=== PATIENT | male | born 1950 | race Caucasian/White ===

== ENCOUNTER 2019-04-25 13:32 | Day surgery (SDC) | payer MEDICARE ==
[2019-04-25] VITALS (8 sets, daily range): BP systolic 109–139; BP diastolic 43–76
[~2019-04-25] VITALS: Ht 188 cm; Wt 80.6 kg
[2019-04-25] MEDS ORDERED: normal saline 1,000 ML IV SCH (13:55)
[2019-04-25] MEDS ORDERED: LIDOcaine/PRILOcaine 5gm cream TP ONE (13:55)
[2019-04-25] MEDS ORDERED: diphenhydrAMINE 25mg capsule PO PRN (13:55)
[2019-04-25] MEDS ORDERED: LORazepam 0.5 MG tablet PO PRN (13:55)
[2019-04-25] MEDS ORDERED: METF-438 PO (14:15)
[2019-04-25] MEDS ORDERED: LACT1CAP65 PO (14:15)
[2019-04-25] MEDS ORDERED: ASPI81TA52 PO (14:15)
[2019-04-25] MEDS ORDERED: SAW/1TAB2 PO (14:15)
[2019-04-25] MEDS ORDERED: GLIP5TAB13 PO (14:15)
[2019-04-25] MEDS ORDERED: ATOR10TA87 PO (14:15)
[2019-04-25] MEDS ORDERED: LISI-604 PO (14:15)
[2019-04-25] MEDS ORDERED: midazolam 2 mg/2 ml injection ONE (16:26)
[2019-04-25] MEDS ORDERED: fentaNYL/PF 50MCG/1 ML 2ML syringe ONE (16:26)
[2019-04-25] MEDS ORDERED: iohexol 350MG/ML 100ml bottle IV ONE (16:27)
[2019-04-25] MEDS ORDERED: nitroGLYCERIN-Tridil 50MG/D5W 250 ML IV ONE (16:27)
[2019-04-25] MEDS ORDERED: verapamil 2.5 mg/ml inj IV ONE (16:27)
[2019-04-25] MEDS ORDERED: heparin 1,000unit/ml 10ml vial 10 ML ONE (16:27)
[2019-04-25] MEDS ORDERED: LIDOcaine 1% W/epiNEPHrine 1:100,000 20ml vial ONE (16:27)
== END 2019-04-25 20:00 | disposition home or self-care (01) ==
LOC: SSTAY O 13:32
PROVIDERS: ATTEND Internal Medicine Interventional Cardiology
DX: R94.39 Abnormal result of other cardiovascular function study (principal); R07.9 Chest pain, unspecified; I25.10 Atherosclerotic heart disease of native coronary artery without angina pectoris; I10 Essential (primary) hypertension; E78.5 Hyperlipidemia, unspecified; E11.9 Type 2 diabetes mellitus without complications; I48.91 Unspecified atrial fibrillation; Z79.84 Long term (current) use of oral hypoglycemic drugs; Z79.82 Long term (current) use of aspirin; Z79.899 Other long term (current) drug therapy
CPT/HCPCS: 82948; 93005; 93458; 99152; 99153; C1769; C1894; J1644; J2250; J3010; J7030; Q0163; Q9967; A4620; J3490

== ENCOUNTER 2019-05-25 05:34 | Inpatient (IN) | payer MEDICARE, OTHER ==
[2019-05-23 14:24] LABS: BASOPHILS % (AUTO) 0.7 % (0-1); EOSINOPHILS # (AUTO) 0.1 X10'3 (0-0.9); EOSINOPHILS % (AUTO) 1.2 % (0-6); LYMPHOCYTES # (AUTO) 1.1 X10'3 (1.1-4.8); LYMPHOCYTES % (AUTO) 21.9 % (21-51); MEAN CORPUSCULAR HEMOGLOBIN 32.2 PG (27.0-31.0); MEAN CORPUSCULAR HGB CONC 33.9 g/dL (33.0-36.5); MEAN CORPUSCULAR VOLUME 95.2 FL (78-98); MEAN PLATELET VOLUME 9.2 FL (7.4-10.4); MONOCYTES # (AUTO) 0.6 X10'3 (0-0.9); MONOCYTES % (AUTO) 11.6 % (2-12); NEUTROPHILS # (AUTO) 3.4 X10'3 (1.8-7.7); NEUTROPHILS % (AUTO) 64.6 % (42-75); PRE OP HEMATOCRIT 44.8 % (42.0-52.0); PRE OP HEMOGLOBIN 15.2 g/dL (14.0-17.9); PRE OP PLATELET COUNT 171 X10'3 (140-440); RED CELL DISTRIBUTION WIDTH 13.7 % (11.5-14.5)
[2019-05-23 14:31] LABS: PRE OP INR 0.9 INR; PRE OP PROTIME 9.8 SECONDS (9.0-12.0)
[2019-05-23 14:34] LABS: ALBUMIN 3.9 G/DL (3.4-5.0); ALBUMIN/GLOBULIN RATIO 0.9 (1.1-1.5); ALKALINE PHOSPHATASE 67 IU/L (46-116); BLOOD UREA NITROGEN 18 MG/DL (7-18); BUN/CREATININE RATIO 17.5 (5.4-32.0); CALCIUM 9.5 MG/DL (8.5-10.1); CHLORIDE 102 MMOL/L (99-107); CREATININE 1.03 MG/DL (0.60-1.10); PRE OP ALT 21 U/L (30-65); PRE OP ANION GAP 9 (8-16); PRE OP AST 19 U/L (10-37); PRE OP BILIRUB, TOTAL 0.3 MG/DL (0.0-1.0); PRE OP GLUCOSE 199 MG/DL (70-104); PRE OP SODIUM 138 MMOL/L (135-145); TOTAL CARBON DIOXIDE 27.5 MMOL/L (24-32); TOTAL PROTEIN 8.1 G/DL (6.4-8.2); eGFR 72 ML/MIN
[2019-05-23 14:46] LABS: HEMOGLOBIN A1C 8.3 % (4.5-6.2)
[2019-05-23 17:26] LABS: CLARITY,URINE CLEAR (Clear); COLOR,URINE YELLOW (Yellow); GLUCOSE, URINE >=1000 mg/dl (Neg); KETONES,URINE NEGATIVE (Neg); LEUKOCYTE ESTERASE ,URINE NEGATIVE (Neg); NITRITES, URINE NEGATIVE (Neg); OCCULT BLOOD,URINE NEGATIVE (Neg); PH,URINE 5.5 (4.8-8.0); PROTEIN,URINE NEGATIVE (Neg); UROBILINOGEN,URINE 0.2 E.U/dL (0.2-1.0)
[2019-05-23 17:33] LABS: UA COLLECTION TYPE VOIDED
[2019-05-23 17:42] LABS: BACTERIA,URINE NONE SEEN /HPF (Neg); RBC,URINE NONE SEEN /HPF (0-2); SQUAMOUS EPITHELIAL CELL,UR NONE SEEN /LPF (FEW); WBC,URINE NONE SEEN /HPF (0-4)
[2019-05-24 06:11] LABS: ABG BASE EXCESS -1.6 mmol/L (-2.0-3.0); ABG HCO3 22.6 mmol/L (22.0-26.0); ABG OXYGEN SATURATION 97.4 % (95-98); ABG PCO2 (T) 36.8 mmHg (35.0-45.0); ABG PH (T) 7.406 (7.350-7.450); ABG PO2 (T) 100.7 mmHg (83-108); ALLEN'S TEST Positive; FCOHb 0.5 % (0.5-1.5); FMetHb 0.3 % (0.3-1.12); FO2Hb 96.6 % (94-100); RESPIRATORY RATE (OBSERVED) 20 b/min
[~2019-05-25] VITALS: Ht 182.9 cm; Wt 86.2 kg
[2019-05-25] VITALS (22 sets, daily range): BP systolic 98–145; BP diastolic 48–84
[~2019-05-25 05:34] MED LIST: ASPI81TA52 PO; ATOR10TA87 PO; GLIP5TAB13 PO; LIDOcaine 1% (10mg/ml) 2ml vial ONE; LISI-604 PO; LORazepam 2 mg/ml vial IV ONE; METF-438 PO; ROPIVAcaine 0.5% (5mg/ml) 30ml vial ONE; SAW/1TAB2 PO; cefazolin/dext.iso 2gm/50ml 50 ML IV ONE; famotidine 20mg tablet PO ONE; gabapentin 300mg capsule PO ONE; metoprolol tartrate 12.5mg (1/2 tablet) PO ONE; mupirocin 2% nasal ointment 1gm UD NS ONE; ringers solution, lacted 1,000 ML IV SCH; vancomycin inj 1,500 MG in normal saline 300ml IV soln IV ONE
[2019-05-25] MEDS ORDERED: INSULIN R 100 UNIT in NS 100ML (1 UNIT/1 ML) BAG IV ONE (06:51)
[2019-05-25] MEDS ORDERED: SUFENTANIL CITRATE 50 MCG/ML 2ml ampule IV ONE (06:51)
[2019-05-25] MEDS ORDERED: protamine sulf. 10mg/ml inj. IV ONE (06:51)
[2019-05-25] MEDS ORDERED: DOPamine/D5W 400mg/250ml bag IV ONE (06:51)
[2019-05-25] MEDS ORDERED: sevoflurane 250ml liquid IH ONE (06:51)
[2019-05-25] MEDS ORDERED: midazolam 2 mg/2 ml injection ONE ×2 (06:52)
[2019-05-25] MEDS ORDERED: rocuronium 10mg/ml inj IV ONE ×3 (06:52→08:14)
[2019-05-25] MEDS ORDERED: propofol inj 20 ML IV ONE (06:52)
--- NOTE | 2019-05-25 07:03 | NUR ---
PT IS SERG, HE HAS A BLOOD REFUSAL WRIST BAND ON. PT FORGOT HIS PROTEIN DRINK, DR MORGAN AWARE Addendum: 05/25/19 at 0709 by Camelia Shepard RN Amended: Links added.
[2019-05-25 07:45] LABS: CLARITY,URINE CLEAR (Clear); COLOR,URINE YELLOW (Yellow); GLUCOSE, URINE 250 mg/dl (Neg); KETONES,URINE NEGATIVE (Neg); LEUKOCYTE ESTERASE ,URINE NEGATIVE (Neg); NITRITES, URINE NEGATIVE (Neg); OCCULT BLOOD,URINE NEGATIVE (Neg); PH,URINE 5.5 (4.8-8.0); PROTEIN,URINE NEGATIVE (Neg); UROBILINOGEN,URINE 0.2 E.U/dL (0.2-1.0)
[2019-05-25 07:46] LABS: ABG BASE EXCESS -3.1 mmol/L (-2.0-3.0); ABG HCO3 21.9 mmol/L (22.0-26.0); ABG OXYGEN SATURATION 97.4 % (95-98); ABG PCO2 39.1 mmHg (35.0-45.0); ABG PH 7.366 (7.350-7.450); ABG PO2 98.7 mmHg (60.0-100.0); CL (ABG) 103 mmol/L (99-107); FCOHb 0.7 % (0.5-1.5); FO2Hb 96.7 % (94-100); GLUCOSE (ABG) 164 mg/dl (70-104); IONIZED CA (ABG) 1.14 mmol/L (1.03-1.32); K (ABG) 4.9 mmol/L (3.3-5.1); NA (ABG) 137 mmol/L (135-145); TOTAL HEMOGLOBIN 13.2 G/dl (14.0-17.9)
[2019-05-25 07:46] LABS: UA COLLECTION TYPE NON-SPECIFIED
[2019-05-25] MEDS ORDERED: papaverine 30 mg/ml 2ml inj. IA ONE ×2 (07:50→10:00)
[2019-05-25] MEDS ORDERED: heparin 10,000 units/1 ML INJ IR ONE (07:50)
[2019-05-25] MEDS ORDERED: methylPREDNISolone sod. succ. 500mg inj ONE (08:00)
[2019-05-25] MEDS ORDERED: heparin 10,000 units/1 ML INJ ONE ×2 (08:00)
[2019-05-25] MEDS ORDERED: aminocaproic acid 250 MG/1 ML inj. ONE (08:00)
[2019-05-25] MEDS ORDERED: albumin (human) 25% 100 ML IV solution IV ONE (08:00)
[2019-05-25] MEDS ORDERED: papaverine 30 mg/ml 2ml inj. ONE (08:00)
[2019-05-25] MEDS ORDERED: calcium chloride 100 MG/1 ML inj IV ONE (08:00)
[2019-05-25] MEDS ORDERED: MAGNESIUM SULFATE 4 MEQ/ML (5gm/10ml) injection ONE (08:00)
[2019-05-25] MEDS ORDERED: sodium bicarbonate (8.4%) 1 mEq/ml syringe ONE (08:00)
[2019-05-25] MEDS ORDERED: phenylephrine 10mg/ml inj. ONE (08:00)
[2019-05-25] MEDS ORDERED: LIDOcaine 2% (20 mg/ml) 5ml cardiac syringe ONE (08:00)
[2019-05-25] MEDS ORDERED: NORMAL SALINE IV ONE (09:30)
[2019-05-25] MEDS ORDERED: DESMOPRESSIN IV ONE (09:30)
[2019-05-25 09:40] LABS: ABG HCO3 VENOUS 21.4 mmol/L; ABG PCO2 VENOUS 40.3 mmHg; CL (ABG) 105 mmol/L (99-107); FCOHb VENOUS 0.7 %; FHHb VENOUS 17.9 %; FMetHb VENOUS 0.3 %; FO2Hb VENOUS 81.1 %; GLUCOSE (ABG) 170 mg/dl (70-104); IONIZED CA (ABG) 1.06 mmol/L (1.03-1.32); NA (ABG) 133 mmol/L (135-145); TOTAL HEMOGLOBIN 12.6 G/dl (14.0-17.9)
[2019-05-25 10:26] LABS: ABG BASE EXCESS VENOUS -3.7 mmol/L; ABG HCO3 VENOUS 20.5 mmol/L; ABG PO2 VENOUS 45.3 mmHg; CL (ABG) 101 mmol/L (99-107); FCOHb VENOUS 0.1 %; FHHb VENOUS 17.7 %; FMetHb VENOUS 0.3 %; FO2Hb VENOUS 81.9 %; GLUCOSE (ABG) 142 mg/dl (70-104); IONIZED CA (ABG) 0.94 mmol/L (1.03-1.32); K (ABG) 5.1 mmol/L (3.3-5.1); NA (ABG) 132 mmol/L (135-145); TOTAL HEMOGLOBIN 10.2 G/dl (14.0-17.9)
[2019-05-25 10:36] LABS: ABG BASE EXCESS -2.1 mmol/L (-2.0-3.0); ABG HCO3 22.2 mmol/L (22.0-26.0); ABG OXYGEN SATURATION 99.2 % (95-98); ABG PCO2 36.2 mmHg (35.0-45.0); ABG PH 7.406 (7.350-7.450); ABG PO2 390.4 mmHg (60.0-100.0); CL (ABG) 103 mmol/L (99-107); FCOHb 0.3 % (0.5-1.5); FMetHb 0.4 % (0.3-1.12); FO2Hb 98.5 % (94-100); GLUCOSE (ABG) 157 mg/dl (70-104); IONIZED CA (ABG) 0.96 mmol/L (1.03-1.32); NA (ABG) 131 mmol/L (135-145); TOTAL HEMOGLOBIN 10.3 G/dl (14.0-17.9)
[2019-05-25 11:01] LABS: ABG BASE EXCESS -2.7 mmol/L (-2.0-3.0); ABG OXYGEN SATURATION 99.3 % (95-98); ABG PCO2 44.1 mmHg (35.0-45.0); ABG PH 7.336 (7.350-7.450); ABG PO2 319.4 mmHg (60.0-100.0); CL (ABG) 105 mmol/L (99-107); FCOHb 0.3 % (0.5-1.5); FMetHb 0.3 % (0.3-1.12); FO2Hb 98.7 % (94-100); GLUCOSE (ABG) 175 mg/dl (70-104); IONIZED CA (ABG) 1.01 mmol/L (1.03-1.32); K (ABG) 5.6 mmol/L (3.3-5.1); NA (ABG) 135 mmol/L (135-145); TOTAL HEMOGLOBIN 10.8 G/dl (14.0-17.9)
[2019-05-25 11:16] LABS: ACT @ 1.70 U 289 SEC (193-297); ACT @ 2.84 U 382 SEC (260-420); BASELINE ACT 139 SEC (101-148); PATIENT WEIGHT 82.0k KG
[2019-05-25 11:36] LABS: ABG BASE EXCESS -1.1 mmol/L (-2.0-3.0); ABG HCO3 24.6 mmol/L (22.0-26.0); ABG PCO2 45.2 mmHg (35.0-45.0); ABG PH 7.353 (7.350-7.450); ABG PO2 256.9 mmHg (60.0-100.0); CL (ABG) 103 mmol/L (99-107); FCOHb 0.3 % (0.5-1.5); FMetHb 0.3 % (0.3-1.12); FO2Hb 98.4 % (94-100); GLUCOSE (ABG) 163 mg/dl (70-104); IONIZED CA (ABG) 0.98 mmol/L (1.03-1.32); K (ABG) 5.7 mmol/L (3.3-5.1); NA (ABG) 133 mmol/L (135-145); TOTAL HEMOGLOBIN 10.1 G/dl (14.0-17.9)
[2019-05-25 12:10] LABS: ABG BASE EXCESS VENOUS -2.6 mmol/L; ABG HCO3 VENOUS 22.3 mmol/L; ABG PCO2 VENOUS 38.8 mmHg; ABG PO2 VENOUS 36.7 mmHg; CL (ABG) 105 mmol/L (99-107); FCOHb VENOUS 0.5 %; FHHb VENOUS 30.2 %; FMetHb VENOUS 0.4 %; FO2Hb VENOUS 68.9 %; GLUCOSE (ABG) 149 mg/dl (70-104); IONIZED CA (ABG) 1.18 mmol/L (1.03-1.32); K (ABG) 4.7 mmol/L (3.3-5.1); NA (ABG) 137 mmol/L (135-145); TOTAL HEMOGLOBIN 10.9 G/dl (14.0-17.9)
[2019-05-25] MEDS ORDERED: acetaminophen 1,000mg/100ml IV 100 ML IV ONE (12:24)
[2019-05-25] MEDS ORDERED: magnesium 2GM in 50ml NS 50 ML IV PRN (12:55)
[2019-05-25] MEDS ORDERED: DOPamine 400mg/D5W 250ml 250 ML IV PRN (12:55)
[2019-05-25] MEDS ORDERED: metoclopramide 5 mg/ml inj IV PRN (12:55)
[2019-05-25] MEDS ORDERED: normal saline 250ml IV soln 250 ML IV PRN (12:55)
[2019-05-25] MEDS ORDERED: ondansetron/PF 4mg/2ml inj IV PRN (12:55)
[2019-05-25] MEDS ORDERED: pantoprazole 40 MG vial IV ONE (12:55)
[2019-05-25] MEDS ORDERED: morphine 4 MG/ML inj SYRINge IV PRN (12:55)
[2019-05-25] MEDS ORDERED: dextrose 50%-water 50ml dispensing syringe IV PRN (12:55)
[2019-05-25] MEDS ORDERED: magnesium hydroxide 30ml (MOM) UD suspension PO PRN (12:55)
[2019-05-25] MEDS ORDERED: NORepinephrine 8mg/ 250ml NS 250 ML IV PRN (12:55)
[2019-05-25] MEDS ORDERED: nitroGLYCERIN-Tridil 50MG/D5W 250 ML IV PRN (12:55)
[2019-05-25] MEDS ORDERED: insulin regular, human inj. 100 UNITS in normal saline 100ml IV soln 100 ML IV SCH ×2 (12:55)
[2019-05-25] MEDS ORDERED: acetaminophen 325mg tablet PO PRN (12:55)
[2019-05-25] MEDS ORDERED: sodium phosphate inj. 15 MMOL in dextrose 5%-water 150 ML IV PRN (12:55)
[2019-05-25] MEDS ORDERED: niCARDipine-NS 40mg/200ml IVPB 200 ML IV PRN (12:55)
[2019-05-25] MEDS ORDERED: Neutra Phos packet PO PRN (12:55)
[2019-05-25] MEDS ORDERED: albumin (Human) 5% 250ml 250 ML IV PRN (12:55)
[2019-05-25] MEDS ORDERED: magnesium 4gm in 100ml NS 100 ML IV PRN (12:55)
[2019-05-25] MEDS ORDERED: sodium phosphate inj. 30 MMOL in dextrose 5%-water 250 ML IV PRN (12:55)
[2019-05-25] MEDS: insulin Lispro (HumaLOG) vial - multi-dose SQ SCH ×2 (13:00→17:06)
--- NOTE | 2019-05-25 13:00 | NUR ---
Received to room 2008, accompanied by MDs and surgical crew. Placed on ventilator, to classroom monitor, arterial line and PA line pressure monitored. Chest tubes to suction at 20 cm. Rodriguez cath to gravity drainage. Dressings are dry and intact. See assessment record. All vasoactive drugs are infusing via central line.
[2019-05-25 13:20] LABS: ABG BASE EXCESS -4.1 mmol/L (-2.0-3.0); ABG HCO3 20.6 mmol/L (22.0-26.0); ABG PCO2 (T) 36.5 mmHg (35.0-45.0); ABG PH (T) 7.369 (7.350-7.450); ABG PO2 (T) 186.3 mmHg (83-108); FCOHb 0.3 % (0.5-1.5); FLOW 40 L/min; FMetHb 0.4 % (0.3-1.12); FO2Hb 98.3 % (94-100); MINUTE VOLUME 7 L/min; PEEP 5 cm H2O; RESPIRATORY RATE 12 b/min; RESPIRATORY RATE (OBSERVED) 12 b/min; TIDAL VOLUME 550 mL; TOTAL HEMOGLOBIN 12.5 G/dl (14.0-17.9)
[2019-05-25 13:29] LABS: BASOPHILS % (AUTO) 0.2 % (0-1); EOSINOPHILS % (AUTO) 0.1 % (0-6); HEMATOCRIT 34.3 % (42.0-52.0); HEMOGLOBIN 11.6 g/dl (14.0-17.9); LYMPHOCYTES # (AUTO) 0.9 X10'3 (1.1-4.8); LYMPHOCYTES % (AUTO) 8.1 % (21-51); MEAN CORPUSCULAR HEMOGLOBIN 32.1 PG (27.0-31.0); MEAN CORPUSCULAR VOLUME 94.5 FL (78-98); MONOCYTES # (AUTO) 0.6 X10'3 (0-0.9); MONOCYTES % (AUTO) 5.3 % (2-12); NEUTROPHILS # (AUTO) 10.1 X10'3 (1.8-7.7); NEUTROPHILS % (AUTO) 86.3 % (42-75); PLATELET COUNT 107 X10'3 (140-440); RED BLOOD COUNT 3.63 X10'6 (4.70-6.10); RED CELL DISTRIBUTION WIDTH 13.6 % (11.5-14.5); WHITE BLOOD COUNT 11.7 X10'3 (4.5-11.0)
[2019-05-25 13:45] LABS: ANION GAP 9 (8-16); BILIRUBIN,TOTAL 0.5 MG/DL (0.1-1.0); BLOOD UREA NITROGEN 17 MG/DL (7-18); CALCIUM 8.2 MG/DL (8.5-10.1); CHLORIDE 109 MMOL/L (99-107); CREATININE 1.21 MG/DL (0.60-1.10); GLUCOSE 138 MG/DL (70-104); MAGNESIUM 1.9 MG/DL (1.5-2.4); PHOSPHORUS 1.6 MG/DL (2.3-4.5); POTASSIUM 4.3 MMOL/L (3.5-5.1); SODIUM 143 MMOL/L (135-145); TOTAL CARBON DIOXIDE 24.8 MMOL/L (24-32); eGFR 60 ML/MIN
[2019-05-25 13:46] LABS: ALANINE AMINOTRANSFERASE 16 U/L (12-78); ALBUMIN/GLOBULIN RATIO 1.3 (1.1-1.5); ALKALINE PHOSPHATASE 41 IU/L (46-116); ASPARTATE AMINO TRANSFERASE 26 U/L (10-37); TOTAL PROTEIN 5.3 G/DL (6.4-8.2)
[2019-05-25] MEDS: insulin regular, human 100 UNIT in normal saline 100ml IV soln 99 ML IV SCH ×2 (14:00)
[2019-05-25] MEDS: sodium chloride 0.45% 1,000 ML IV SCH (14:04)
[2019-05-25 14:06] LABS: PARTIAL THROMBOPLASTIN TIME 26 SECONDS (22-32)
[2019-05-25] MEDS: gabapentin 300mg capsule PO SCH ×2 (14:10→20:33)
--- NOTE | 2019-05-25 14:30 | NUR ---
Dr Conway here ordered cryo secondary cheat tube output 150cc last hour
--- NOTE | 2019-05-25 14:46 | NUR ---
Nutrition consult: Pt s/p CABG x 5 today, would benefit from nutrition therapy education once stable prior to discharge. Will continue to follow. Addendum: 05/25/19 at [address] Amended: Links added.
[2019-05-25] MEDS: ceFAZolin 1GM/D5W- ADD-VANTAGE 50 ML IV SCH ×2 (15:41→23:57)
[2019-05-25] MEDS: potassium Cl 20mEq/100mL bag 100 ML IV PRN ×2 (17:09→18:15)
--- NOTE | 2019-05-25 18:15 | NUR ---
Problems reprioritized. Patient report given, questions answered & plan of care reviewed with oncoming shift.
--- NOTE | 2019-05-25 18:31 | NUR ---
1830..Patient in room CICU 2007. I have received report from Tracey GARRETT and had the opportunity to ask questions and assume patient care.
[2019-05-25] MEDS: mupirocin 2% ointment 22GM NS SCH (19:28)
[2019-05-25] MEDS: vancomycin/NS 1 GM ADD-VANTAGE 250 ML IV SCH (19:28)
[2019-05-25] MEDS: morphine 4 MG/ML inj SYRINge IV PRN ×2 (19:29→22:55)
[2019-05-25] MEDS: docusate sod 100mg capsule PO SCH (19:30)
--- NOTE | 2019-05-25 20:41 | NUR ---
2000..Assessment as noted, morphine given for complaints of pain effective for pain relief.
[2019-05-26] VITALS (24 sets, daily range): BP systolic 90–120; BP diastolic 50–64
--- NOTE | 2019-05-26 00:11 | NUR ---
0000..No changes noted, continuing to wean vent, again morphine given for complaints of pain effective fpr pain relief.
[2019-05-26 01:15] LABS: BASOPHILS % (AUTO) 0.1 % (0-1); EOSINOPHILS % (AUTO) 0 % (0-6); HEMATOCRIT 28.4 % (42.0-52.0); HEMOGLOBIN 9.8 g/dl (14.0-17.9); LYMPHOCYTES # (AUTO) 0.5 X10'3 (1.1-4.8); LYMPHOCYTES % (AUTO) 5.1 % (21-51); MEAN CORPUSCULAR HEMOGLOBIN 32.5 PG (27.0-31.0); MEAN CORPUSCULAR HGB CONC 34.6 g/dL (33.0-36.5); MEAN PLATELET VOLUME 9.1 FL (7.4-10.4); MONOCYTES # (AUTO) 0.7 X10'3 (0-0.9); MONOCYTES % (AUTO) 7.1 % (2-12); NEUTROPHILS # (AUTO) 8.1 X10'3 (1.8-7.7); NEUTROPHILS % (AUTO) 87.7 % (42-75); PLATELET COUNT 96 X10'3 (140-440); RED BLOOD COUNT 3.02 X10'6 (4.70-6.10); RED CELL DISTRIBUTION WIDTH 13.9 % (11.5-14.5); WHITE BLOOD COUNT 9.2 X10'3 (4.5-11.0)
[2019-05-26 01:27] LABS: PARTIAL THROMBOPLASTIN TIME 28 SECONDS (22-32)
[2019-05-26 01:31] LABS: ALANINE AMINOTRANSFERASE 16 U/L (12-78); ALBUMIN/GLOBULIN RATIO 1.2 (1.1-1.5); ALKALINE PHOSPHATASE 40 IU/L (46-116); ANION GAP 6 (8-16); ASPARTATE AMINO TRANSFERASE 29 U/L (10-37); BILIRUBIN,TOTAL 0.3 MG/DL (0.1-1.0); BLOOD UREA NITROGEN 16 MG/DL (7-18); BUN/CREATININE RATIO 14.2 (5.4-32.0); CHLORIDE 110 MMOL/L (99-107); CREATININE 1.13 MG/DL (0.60-1.10); GLUCOSE 122 MG/DL (70-104); MAGNESIUM 2.3 MG/DL (1.5-2.4); PHOSPHORUS 3.4 MG/DL (2.3-4.5); POTASSIUM 4.5 MMOL/L (3.5-5.1); SODIUM 143 MMOL/L (135-145); TOTAL CARBON DIOXIDE 26.8 MMOL/L (24-32); TOTAL PROTEIN 5.6 G/DL (6.4-8.2); eGFR 65 ML/MIN
[2019-05-26 01:31] LABS: ABG BASE EXCESS -3.8 mmol/L (-2.0-3.0); ABG HCO3 21.2 mmol/L (22.0-26.0); ABG PCO2 (T) 38.8 mmHg (35.0-45.0); ABG PH (T) 7.358 (7.350-7.450); ABG PO2 (T) 94.3 mmHg (83-108); FCOHb 0.2 % (0.5-1.5); FMetHb 0.2 % (0.3-1.12); FO2Hb 95.6 % (94-100); MINUTE VOLUME 8 L/min; PATIENT TEMPERATURE 37.3; PEEP 5 cm H2O; RESPIRATORY RATE (OBSERVED) 10 b/min; TOTAL HEMOGLOBIN 10.6 G/dl (14.0-17.9)
--- NOTE | 2019-05-26 01:47 | NUR ---
0145..Passed weaning parameters, extubated to 4l nasal cannula, no wheezing or stridor, tolerated well.
[2019-05-26] MEDS: HYDROcodone/acetaminophen 10/325mg tab PO PRN ×4 (01:59→20:48)
--- NOTE | 2019-05-26 03:42 | NUR ---
0330..Gilbert given for complaints of pain effective, pt denies pain. No other changes noted.
--- NOTE | 2019-05-26 04:09 | NUR ---
0400..Resting quietly, eyes closed, resp easy and nonlabored, no changes noted.
[2019-05-26] MEDS: insulin regular, human 100 UNIT in normal saline 100ml IV soln 99 ML IV SCH ×2 (06:00)
--- NOTE | 2019-05-26 06:16 | NUR ---
0615..Problems reprioritized. Patient report given, questions answered & plan of care reviewed with Tracey GARRETT.
[2019-05-26 07:36] LABS: K (ABG) 6.4 mmol/L (3.3-5.1)
[2019-05-26] MEDS: atorvastatin 10mg tablet PO SCH (08:00)
[2019-05-26] MEDS: FERROUS SULFATE 142 MG TABLET.ER (45mg elemental) PO SCH (08:00)
[2019-05-26] MEDS: metoprolol tartrate 12.5mg (1/2 tablet) PO SCH ×2 (08:00→19:47)
[2019-05-26] MEDS: ceFAZolin 1GM/D5W- ADD-VANTAGE 50 ML IV SCH ×2 (08:00→17:35)
[2019-05-26] MEDS: aspirin 81mg tablet.DR PO SCH (08:00)
[2019-05-26] MEDS ORDERED: potassium Cl 2 mEq/ml inj IV ONE (08:00)
[2019-05-26] MEDS: gabapentin 300mg capsule PO SCH ×3 (08:00→19:47)
[2019-05-26] MEDS ORDERED: aspirin 325mg tablet, delayed-release (Ecotrin) PO SCH (08:00)
[2019-05-26] MEDS: vancomycin/NS 1 GM ADD-VANTAGE 250 ML IV SCH ×2 (08:00→19:56)
[2019-05-26] MEDS: mupirocin 2% ointment 22GM NS SCH ×2 (08:00→19:48)
[2019-05-26] MEDS: docusate sod 100mg capsule PO SCH ×2 (08:00→19:47)
[2019-05-26] MEDS ORDERED: MESSAGE TO PHARMACY PO ONE (14:10)
[2019-05-26] MEDS ORDERED: glucagon, human recombinant 1mg kit SUBCUT PRN (14:10)
[2019-05-26] MEDS ORDERED: dextrose 50%-water 50ml dispensing syringe IV PRN ×2 (14:10)
[2019-05-26] MEDS ORDERED: dextrose ORAL solution 15 GM/59 ML bottle PO PRN ×2 (14:10)
[2019-05-26] MEDS: insulin Lispro (HumaLOG) vial - multi-dose SQ SCH ×2 (14:23→19:54)
[2019-05-26] MEDS: sodium chloride 0.45% 1,000 ML IV SCH (17:48)
--- NOTE | 2019-05-26 18:07 | NUR ---
Problems reprioritized. Patient report given, questions answered & plan of care reviewed with oncoming shift.
--- NOTE | 2019-05-26 18:37 | NUR ---
1830..Patient in room CICU 2007. I have received report from Tracey GARRETT and had the opportunity to ask questions and assume patient care.
[2019-05-26] MEDS: insulin glargine (Lantus) pen - multi-dose SQ SCH (19:53)
--- NOTE | 2019-05-26 22:32 | NUR ---
2200..Medicated with 2 norco for complaints of incisional pain, 02/12, with good effect, no other changes noted.
--- NOTE | 2019-05-26 22:32 | NUR ---
2000..Assessment as noted,declines bath.
[2019-05-27] VITALS (24 sets, daily range): BP systolic 100–135; BP diastolic 51–76
[2019-05-27] MEDS: ceFAZolin 1GM/D5W- ADD-VANTAGE 50 ML IV SCH (00:24)
--- NOTE | 2019-05-27 00:31 | NUR ---
0000..Resting quietly, no changes noted.
[2019-05-27 03:04] LABS: BASOPHILS % (AUTO) 0.1 % (0-1); EOSINOPHILS % (AUTO) 0 % (0-6); HEMATOCRIT 27.8 % (42.0-52.0); HEMOGLOBIN 9.4 g/dl (14.0-17.9); LYMPHOCYTES # (AUTO) 0.9 X10'3 (1.1-4.8); LYMPHOCYTES % (AUTO) 9.2 % (21-51); MEAN CORPUSCULAR HEMOGLOBIN 32.3 PG (27.0-31.0); MEAN CORPUSCULAR HGB CONC 33.8 g/dL (33.0-36.5); MEAN CORPUSCULAR VOLUME 95.6 FL (78-98); MEAN PLATELET VOLUME 9.8 FL (7.4-10.4); MONOCYTES # (AUTO) 1.2 X10'3 (0-0.9); MONOCYTES % (AUTO) 12.2 % (2-12); NEUTROPHILS # (AUTO) 7.6 X10'3 (1.8-7.7); NEUTROPHILS % (AUTO) 78.5 % (42-75); PLATELET COUNT 94 X10'3 (140-440); RED BLOOD COUNT 2.91 X10'6 (4.70-6.10); RED CELL DISTRIBUTION WIDTH 13.8 % (11.5-14.5); WHITE BLOOD COUNT 9.6 X10'3 (4.5-11.0)
[2019-05-27 03:23] LABS: ALBUMIN 2.8 G/DL (3.4-5.0); ANION GAP 2 (8-16); BLOOD UREA NITROGEN 24 MG/DL (7-18); CALCIUM 7.4 MG/DL (8.5-10.1); CHLORIDE 103 MMOL/L (99-107); GLUCOSE 221 MG/DL (70-104); MAGNESIUM 2.2 MG/DL (1.5-2.4); PHOSPHORUS 2.7 MG/DL (2.3-4.5); POTASSIUM 5.2 MMOL/L (3.5-5.1); SODIUM 134 MMOL/L (135-145); TOTAL CARBON DIOXIDE 28.6 MMOL/L (24-32); eGFR 61 ML/MIN
[2019-05-27] MEDS: HYDROcodone/acetaminophen 10/325mg tab PO PRN ×3 (03:29→23:18)
--- NOTE | 2019-05-27 04:29 | NUR ---
0415..[place] given for complaints of incisional pain 02/12, effective fpr pain relief, no other changes noted.
--- NOTE | 2019-05-27 06:16 | NUR ---
0615..Problems reprioritized. Patient report given, questions answered & plan of care reviewed with Khang GARRETT.
[2019-05-27] MEDS: gabapentin 300mg capsule PO SCH (07:59)
[2019-05-27] MEDS: pantoprazole 40mg Tablet.DR PO SCH (07:59)
[2019-05-27] MEDS: docusate sod 100mg capsule PO SCH ×2 (07:59→19:15)
[2019-05-27] MEDS: atorvastatin 10mg tablet PO SCH (07:59)
[2019-05-27] MEDS: aspirin 81mg tablet.DR PO SCH (07:59)
[2019-05-27] MEDS: mupirocin 2% ointment 22GM NS SCH (08:00)
[2019-05-27] MEDS: metoprolol tartrate 12.5mg (1/2 tablet) PO SCH ×2 (08:01→19:15)
[2019-05-27] MEDS: insulin Lispro (HumaLOG) vial - multi-dose SQ SCH ×3 (08:34→19:11)
[2019-05-27] MEDS: FERROUS SULFATE 142 MG TABLET.ER (45mg elemental) PO SCH (08:35)
[2019-05-27] MEDS: acetaminophen 325mg tablet PO PRN (12:09)
[2019-05-27] MEDS: insulin glargine (Lantus) pen - multi-dose SQ SCH (20:58)
[2019-05-28] VITALS (16 sets, daily range): BP systolic 100–135; BP diastolic 48–71
[2019-05-28 03:41] LABS: BASOPHILS % (AUTO) 0.4 % (0-1); EOSINOPHILS # (AUTO) 0.1 X10'3 (0-0.9); EOSINOPHILS % (AUTO) 1.2 % (0-6); HEMATOCRIT 26.3 % (42.0-52.0); LYMPHOCYTES # (AUTO) 1.4 X10'3 (1.1-4.8); LYMPHOCYTES % (AUTO) 17.7 % (21-51); MEAN CORPUSCULAR HEMOGLOBIN 32.2 PG (27.0-31.0); MEAN CORPUSCULAR HGB CONC 34.3 g/dL (33.0-36.5); MEAN CORPUSCULAR VOLUME 93.9 FL (78-98); MONOCYTES # (AUTO) 1.2 X10'3 (0-0.9); MONOCYTES % (AUTO) 15.3 % (2-12); NEUTROPHILS % (AUTO) 65.4 % (42-75); PLATELET COUNT 102 X10'3 (140-440); RED CELL DISTRIBUTION WIDTH 13.5 % (11.5-14.5); WHITE BLOOD COUNT 7.7 X10'3 (4.5-11.0)
[2019-05-28 03:46] LABS: ALBUMIN 2.4 G/DL (3.4-5.0); ANION GAP 6 (8-16); BLOOD UREA NITROGEN 20 MG/DL (7-18); BUN/CREATININE RATIO 21.5 (5.4-32.0); CALCIUM 7.5 MG/DL (8.5-10.1); CHLORIDE 105 MMOL/L (99-107); CREATININE 0.93 MG/DL (0.60-1.10); GLUCOSE 106 MG/DL (70-104); PHOSPHORUS 2.4 MG/DL (2.3-4.5); POTASSIUM 4.3 MMOL/L (3.5-5.1); SODIUM 139 MMOL/L (135-145); TOTAL CARBON DIOXIDE 27.9 MMOL/L (24-32); eGFR 81 ML/MIN
[2019-05-28] MEDS: HYDROcodone/acetaminophen 10/325mg tab PO PRN ×3 (04:47→23:25)
[2019-05-28 05:34] LABS: TOTAL CELLS COUNTED 100
[2019-05-28 05:35] LABS: ANISOCYTOSIS FEW; PLATELET ESTIMATE DECREASED
[2019-05-28 05:36] LABS: POLYCHROMASIA 1+
[2019-05-28] MEDS: FERROUS SULFATE 142 MG TABLET.ER (45mg elemental) PO SCH (07:32)
[2019-05-28] MEDS: aspirin 81mg tablet.DR PO SCH (07:32)
[2019-05-28] MEDS: pantoprazole 40mg Tablet.DR PO SCH (07:32)
[2019-05-28] MEDS: atorvastatin 10mg tablet PO SCH (07:32)
[2019-05-28] MEDS: metoprolol tartrate 12.5mg (1/2 tablet) PO SCH (07:33)
[2019-05-28] MEDS: docusate sod 100mg capsule PO SCH ×2 (07:33→21:16)
[2019-05-28] MEDS: insulin Lispro (HumaLOG) vial - multi-dose SQ SCH ×3 (08:34→19:18)
[2019-05-28] MEDS ORDERED: furosemide 40mg/4ml inj IV ONE (09:20)
[2019-05-28] MEDS ORDERED: metoprolol tartrate 12.5mg (1/2 tablet) PO ONE (09:25)
--- NOTE | 2019-05-28 09:55 | NUR ---
Pt with A1c 8.3, POD #3 from CABG x 5. Pt would benefit from DM education prior to discharge once stable. Patient's diet has been advanced to CHO controlled and pt documented with 75-100% PO intake meeting nutrient needs. Will continue to follow. Addendum: 05/28/19 at [address] Amended: Links added.
--- NOTE | 2019-05-28 14:45 | NUR ---
Received from [facility]
--- NOTE | 2019-05-28 15:00 | NUR ---
Pt arrived on unit at 1500, no noted distress, has personal belongings, V/S WIN
--- NOTE | 2019-05-28 15:17 | NUR ---
Pt transferred to [facility]. Report given to GERRY Slater. VSS upon transfer. SBAR checklist completed. All belongings sent with pt. Pt received by care RN. Will continue to monitor.
--- NOTE | 2019-05-28 18:00 | NUR ---
Patient in room MED 307. I have received report from Nohemy GARRETT and had the opportunity to ask questions and assume patient care.
--- NOTE | 2019-05-28 18:00 | NUR ---
Problems reprioritized. Patient report given, questions answered & plan of care reviewed with GERRY Dyer.
[2019-05-28] MEDS: metoprolol tartrate 25mg tablet PO SCH (21:17)
[2019-05-28] MEDS: insulin glargine (Lantus) pen - multi-dose SQ SCH (21:29)
[2019-05-29 02:00] VITALS: BP 115/63
[2019-05-29] MEDS: HYDROcodone/acetaminophen 10/325mg tab PO PRN ×2 (02:56→10:26)
[2019-05-29 04:28] LABS: BASOPHILS % (AUTO) 0.3 % (0-1); EOSINOPHILS # (AUTO) 0.1 X10'3 (0-0.9); EOSINOPHILS % (AUTO) 1.4 % (0-6); HEMATOCRIT 30.2 % (42.0-52.0); HEMOGLOBIN 10.2 g/dl (14.0-17.9); LYMPHOCYTES # (AUTO) 1.2 X10'3 (1.1-4.8); LYMPHOCYTES % (AUTO) 17.5 % (21-51); MEAN CORPUSCULAR HGB CONC 33.7 g/dL (33.0-36.5); MEAN CORPUSCULAR VOLUME 94.8 FL (78-98); MEAN PLATELET VOLUME 8.9 FL (7.4-10.4); MONOCYTES # (AUTO) 1.1 X10'3 (0-0.9); MONOCYTES % (AUTO) 15.8 % (2-12); NEUTROPHILS # (AUTO) 4.7 X10'3 (1.8-7.7); PLATELET COUNT 137 X10'3 (140-440); RED BLOOD COUNT 3.18 X10'6 (4.70-6.10); RED CELL DISTRIBUTION WIDTH 13.1 % (11.5-14.5); WHITE BLOOD COUNT 7.2 X10'3 (4.5-11.0)
[2019-05-29 04:30] LABS: ALBUMIN 2.7 G/DL (3.4-5.0); ANION GAP 8 (8-16); BLOOD UREA NITROGEN 19 MG/DL (7-18); BUN/CREATININE RATIO 19.4 (5.4-32.0); CHLORIDE 103 MMOL/L (99-107); CREATININE 0.98 MG/DL (0.60-1.10); GLUCOSE 85 MG/DL (70-104); POTASSIUM 4.2 MMOL/L (3.5-5.1); SODIUM 137 MMOL/L (135-145); TOTAL CARBON DIOXIDE 26.3 MMOL/L (24-32); eGFR 77 ML/MIN
[2019-05-29 05:02] LABS: ANISOCYTOSIS FEW; PLATELET ESTIMATE DECREASED; POLYCHROMASIA 1+; TOTAL CELLS COUNTED 100
[2019-05-29] MEDS: potassium Cl 20 mEq SR tablet PO PRN (05:51)
[2019-05-29 06:00] VITALS: BP 131/71
--- NOTE | 2019-05-29 06:00 | NUR ---
Patient in room MED 307. I have received report from GERRY Dyer and had the opportunity to ask questions and assume patient care.
--- NOTE | 2019-05-29 06:00 | NUR ---
Problems reprioritized. Patient report given, questions answered & plan of care reviewed with Ana GARRETT.
[2019-05-29] MEDS: aspirin 81mg tablet.DR PO SCH (07:35)
[2019-05-29] MEDS: docusate sod 100mg capsule PO SCH ×2 (07:35→20:02)
[2019-05-29] MEDS: atorvastatin 10mg tablet PO SCH (07:35)
[2019-05-29] MEDS: FERROUS SULFATE 142 MG TABLET.ER (45mg elemental) PO SCH (07:35)
[2019-05-29] MEDS: pantoprazole 40mg Tablet.DR PO SCH (07:35)
[2019-05-29] MEDS: metoprolol tartrate 25mg tablet PO SCH (07:35)
[2019-05-29] MEDS ORDERED: magnesium 4gm in 100ml NS 100 ML IV PRN (08:05)
[2019-05-29] MEDS ORDERED: magnesium 2GM in 50ml NS 50 ML IV PRN (08:05)
[2019-05-29] MEDS ORDERED: magnesium citrate 296ml oral solution PO ONE (09:40)
[2019-05-29] MEDS: insulin Lispro (HumaLOG) vial - multi-dose SQ SCH ×3 (09:50→20:09)
--- NOTE | 2019-05-29 10:05 | NUR ---
Spoke with VENKAT Lima regarding patients code status. Patient is FULL CODE. VENKAT Lima entered order.
[2019-05-29 11:00] VITALS: BP 123/64
[2019-05-29 15:00] VITALS: BP 150/74
--- NOTE | 2019-05-29 15:53 | NUR ---
Called and left a message for VENKAT Lima. Notified PA on patients sustained tachycardia with controlled rate HR 120's, asymptomatic, BP stable, O2 2LPM needed for desaturation while sleeping. Requested for a call back if any changes are needed.
[2019-05-29] MEDS ORDERED: metoprolol tartrate 50mg tablet PO ONE (16:15)
--- NOTE | 2019-05-29 16:15 | NUR ---
Initial: Pt s/p CABGx5 PO 75-100% avg meals meeting needs. LBM 05/25 s/p mag citrate today receiving colace. Pt seen by RD for written/verbal CABG/DM eds w/ RD contact information provided. RD encouraged attending CDE course. Pt requests gravy w/ meats at dinner; dietary notified. Will continue to monitor. Rec: 1. continue carb controlled diet 2. routine bowel care 3. wt per rx Addendum: 05/29/19 at [address] Amended: Links added.
--- NOTE | 2019-05-29 17:38 | NUR ---
[place] documentation and med administration: I have reviewed and agree with all interventions, assessments performed and documented by Amara GARRETT.
--- NOTE | 2019-05-29 17:53 | NUR ---
Problems reprioritized. Patient report given, questions answered & plan of care reviewed with GERRY Hernández.
[2019-05-29 18:00] VITALS: BP 96/53
--- NOTE | 2019-05-29 18:00 | NUR ---
Patient in room MED 307. I have received report from GERRY Maloney and had the opportunity to ask questions and assume patient care.
--- NOTE | 2019-05-29 18:30 | NUR ---
Problems reprioritized. Patient report given, questions answered & plan of care reviewed with Betty GARRETT.
[2019-05-29] MEDS: insulin glargine (Lantus) pen - multi-dose SQ SCH (21:49)
[2019-05-29 22:00] VITALS: BP 96/56
[2019-05-30] VITALS (12 sets, daily range): BP systolic 82–128; BP diastolic 45–71
[2019-05-30] MEDS: metoprolol tartrate 25mg tablet PO SCH ×4 (00:21→20:36)
[2019-05-30 05:16] LABS: BASOPHILS % (AUTO) 0 % (0-1); EOSINOPHILS % (AUTO) 0 % (0-6); HEMOGLOBIN 9.3 g/dl (14.0-17.9); LYMPHOCYTES # (AUTO) 0.6 X10'3 (1.1-4.8); LYMPHOCYTES % (AUTO) 2.6 % (21-51); MEAN CORPUSCULAR HEMOGLOBIN 31.8 PG (27.0-31.0); MEAN CORPUSCULAR HGB CONC 34.3 g/dL (33.0-36.5); MEAN CORPUSCULAR VOLUME 92.7 FL (78-98); MEAN PLATELET VOLUME 8.5 FL (7.4-10.4); MONOCYTES # (AUTO) 3.2 X10'3 (0-0.9); MONOCYTES % (AUTO) 13.4 % (2-12); NEUTROPHILS # (AUTO) 20.4 X10'3 (1.8-7.7); PLATELET COUNT 182 X10'3 (140-440); RED BLOOD COUNT 2.92 X10'6 (4.70-6.10); RED CELL DISTRIBUTION WIDTH 13.6 % (11.5-14.5); WHITE BLOOD COUNT 24.3 X10'3 (4.5-11.0)
[2019-05-30] MEDS: acetaminophen 325mg tablet PO PRN ×3 (05:31→20:55)
[2019-05-30 05:39] LABS: ALBUMIN 2.4 G/DL (3.4-5.0); ANION GAP 10 (8-16); BLOOD UREA NITROGEN 31 MG/DL (7-18); BUN/CREATININE RATIO 18.7 (5.4-32.0); CALCIUM 7.8 MG/DL (8.5-10.1); CHLORIDE 103 MMOL/L (99-107); CREATININE 1.66 MG/DL (0.60-1.10); GLUCOSE 186 MG/DL (70-104); MAGNESIUM 2.4 MG/DL (1.5-2.4); POTASSIUM 5.3 MMOL/L (3.5-5.1); SODIUM 139 MMOL/L (135-145); TOTAL CARBON DIOXIDE 25.6 MMOL/L (24-32); eGFR 42 ML/MIN
--- NOTE | 2019-05-30 05:46 | NUR ---
NOTIFIED Patient WBCs up to 24.3 from 7.2. Fever of 102.1. HR low 100s. SBP 90s to 100s. Tylenol given. Orders for blood cultures. Will continue to monitor.
[2019-05-30 05:59] LABS: PLATELET ESTIMATE NORMAL; TOTAL CELLS COUNTED 100
--- NOTE | 2019-05-30 06:00 | NUR ---
Patient in room MED 307. I have received report from GERRY Hernández and had the opportunity to ask questions and assume patient care.
--- NOTE | 2019-05-30 06:16 | NUR ---
Problems reprioritized. Patient report given, questions answered & plan of care reviewed with GERRY Buchanan and GERRY Maloney.
--- NOTE | 2019-05-30 06:20 | NUR ---
NOC nurse reported patient febrile with 102F, diaphoretic, no other symptoms and patient has no complaints. Received Tylenol; effective with temperature now at 98.7F
[2019-05-30] MEDS: pantoprazole 40mg Tablet.DR PO SCH (06:41)
--- NOTE | 2019-05-30 07:13 | NUR ---
paged radiology for stat CXR.
[2019-05-30] MEDS: atorvastatin 10mg tablet PO SCH (07:28)
[2019-05-30] MEDS: docusate sod 100mg capsule PO SCH ×2 (07:28→20:36)
[2019-05-30] MEDS: aspirin 81mg tablet.DR PO SCH (07:28)
[2019-05-30] MEDS: FERROUS SULFATE 142 MG TABLET.ER (45mg elemental) PO SCH (07:28)
--- NOTE | 2019-05-30 09:23 | NUR ---
Per ilir Donohue to administer Metoprolol 50mg.
[2019-05-30] MEDS: insulin Lispro (HumaLOG) vial - multi-dose SQ SCH ×2 (09:28→13:48)
[2019-05-30 12:11] LABS: ALBUMIN 2.1 G/DL (3.4-5.0); ANION GAP 6 (8-16); BLOOD UREA NITROGEN 33 MG/DL (7-18); BUN/CREATININE RATIO 21.7 (5.4-32.0); CALCIUM 7.3 MG/DL (8.5-10.1); CHLORIDE 104 MMOL/L (99-107); CREATININE 1.52 MG/DL (0.60-1.10); GLUCOSE 187 MG/DL (70-104); POTASSIUM 4.8 MMOL/L (3.5-5.1); SODIUM 135 MMOL/L (135-145); TOTAL CARBON DIOXIDE 25.4 MMOL/L (24-32); eGFR 46 ML/MIN
--- NOTE | 2019-05-30 15:57 | NUR ---
Spoke with VENKAT Lima regarding patient's febrile episodes. Tylenol has been effective, physician aware. No need to call regarding fevers, unless patient's hemodynamics have been compromised. New order for NS 75ml/hr to start.
[2019-05-30] MEDS: normal saline 1000ml 1,000 ML IV SCH (17:32)
--- NOTE | 2019-05-30 17:39 | NUR ---
I have reviewed and agree with all interventions, assessments performed and documented by GERRY Maloney.
--- NOTE | 2019-05-30 17:57 | NUR ---
Problems reprioritized. Patient report given, questions answered & plan of care reviewed with GERRY Hernández.
--- NOTE | 2019-05-30 18:00 | NUR ---
Patient in room MED 307. I have received report from AmaraRN and ChanelRN and had the opportunity to ask questions and assume patient care.
[2019-05-30] MEDS ORDERED: vancomycin 1,000mg inj IV SCH (20:00)
[2019-05-30] MEDS: insulin glargine (Lantus) pen - multi-dose SQ SCH (20:44)
[2019-05-30] MEDS: cefepime 2g/NS 100ml ADVANTAGE 100 ML IV SCH (20:44)
[2019-05-31] VITALS (8 sets, daily range): BP systolic 102–132; BP diastolic 57–67
[2019-05-31] MEDS ORDERED: VANCOMYCIN LEVEL IV ONE (00:30)
[2019-05-31 00:59] LABS: BASOPHILS % (AUTO) 0.1 % (0-1); EOSINOPHILS % (AUTO) 0.1 % (0-6); HEMATOCRIT 23.9 % (42.0-52.0); HEMOGLOBIN 8.1 g/dl (14.0-17.9); LYMPHOCYTES # (AUTO) 0.9 X10'3 (1.1-4.8); LYMPHOCYTES % (AUTO) 3.8 % (21-51); MEAN CORPUSCULAR HEMOGLOBIN 31.5 PG (27.0-31.0); MEAN CORPUSCULAR VOLUME 92.6 FL (78-98); MEAN PLATELET VOLUME 8.1 FL (7.4-10.4); MONOCYTES # (AUTO) 1.8 X10'3 (0-0.9); MONOCYTES % (AUTO) 7.4 % (2-12); NEUTROPHILS # (AUTO) 21.1 X10'3 (1.8-7.7); NEUTROPHILS % (AUTO) 88.6 % (42-75); PLATELET COUNT 170 X10'3 (140-440); RED BLOOD COUNT 2.58 X10'6 (4.70-6.10); RED CELL DISTRIBUTION WIDTH 13.4 % (11.5-14.5); WHITE BLOOD COUNT 23.8 X10'3 (4.5-11.0)
[2019-05-31 01:05] LABS: ALBUMIN 2.1 G/DL (3.4-5.0); ANION GAP 9 (8-16); BLOOD UREA NITROGEN 33 MG/DL (7-18); CALCIUM 7.2 MG/DL (8.5-10.1); CHLORIDE 104 MMOL/L (99-107); CREATININE 1.32 MG/DL (0.60-1.10); GLUCOSE 154 MG/DL (70-104); MAGNESIUM 2.8 MG/DL (1.5-2.4); POTASSIUM 4.4 MMOL/L (3.5-5.1); SODIUM 135 MMOL/L (135-145); TOTAL CARBON DIOXIDE 22.4 MMOL/L (24-32); eGFR 54 ML/MIN
[2019-05-31] MEDS: VANCOmycin 1250MG/NS 250ml Bag 250 ML IV SCH ×2 (01:26→13:33)
--- NOTE | 2019-05-31 06:00 | NUR ---
Patient in room MED 307. I have received report from GERRY Hernández and had the opportunity to ask questions and assume patient care.
[2019-05-31] MEDS: normal saline 1000ml 1,000 ML IV SCH (06:20)
--- NOTE | 2019-05-31 06:31 | NUR ---
Problems reprioritized. Patient report given, questions answered & plan of care reviewed with GERRY Maloney and GERRY Buchanan.
--- NOTE | 2019-05-31 07:30 | NUR ---
Encouraged patient to sit upright in chair for meals and to ambulate as much as possible to prevent complications. Patient educated and still refused OOB for breakfast.
[2019-05-31] MEDS: cefepime 2g/NS 100ml ADVANTAGE 100 ML IV SCH ×2 (07:37→21:29)
[2019-05-31] MEDS: docusate sod 100mg capsule PO SCH ×2 (07:38→21:28)
[2019-05-31] MEDS: FERROUS SULFATE 142 MG TABLET.ER (45mg elemental) PO SCH (07:38)
[2019-05-31] MEDS: metoprolol tartrate 25mg tablet PO SCH ×2 (07:38→21:30)
[2019-05-31] MEDS: pantoprazole 40mg Tablet.DR PO SCH (07:38)
[2019-05-31] MEDS: aspirin 81mg tablet.DR PO SCH (07:38)
[2019-05-31] MEDS: atorvastatin 10mg tablet PO SCH (07:38)
[2019-05-31] MEDS ORDERED: furosemide 20 MG/2 ML vial IV ONE (08:15)
[2019-05-31] MEDS: insulin Lispro (HumaLOG) vial - multi-dose SQ SCH ×3 (09:24→18:53)
--- NOTE | 2019-05-31 12:45 | NUR ---
nursing staff has been encouraging pt. to sit up in chair for meals and use their incentive spirometer. pt. has also been encouraged to take walks with staff.
--- NOTE | 2019-05-31 16:49 | NUR ---
I have reviewed and agree with all interventions, assessments performed and documented by GERRY Maloney.
--- NOTE | 2019-05-31 18:00 | NUR ---
Patient in room MED 307. I have received report from ROXY GARRETT and had the opportunity to ask questions and assume patient care.
--- NOTE | 2019-05-31 18:36 | NUR ---
Problems reprioritized. Patient report given, questions answered & plan of care reviewed with GERRY Hill.
[2019-05-31] MEDS: lactobacillus rhamnosus 10,000 MMU CELLS/CAPSULE PO SCH (21:27)
[2019-05-31] MEDS: potassium Cl 20 mEq SR tablet PO PRN (21:28)
[2019-05-31] MEDS: HYDROcodone/acetaminophen 10/325mg tab PO PRN (21:47)
[2019-05-31] MEDS: insulin glargine (Lantus) pen - multi-dose SQ SCH (21:53)
[2019-06-01] MEDS ORDERED: VANCOMYCIN LEVEL IV ONE (00:30)
[2019-06-01 02:00] VITALS: BP 113/52
[2019-06-01 02:07] LABS: BASOPHILS % (AUTO) 0.2 % (0-1); EOSINOPHILS # (AUTO) 0.1 X10'3 (0-0.9); EOSINOPHILS % (AUTO) 0.8 % (0-6); HEMOGLOBIN 8.4 g/dl (14.0-17.9); LYMPHOCYTES # (AUTO) 1.4 X10'3 (1.1-4.8); LYMPHOCYTES % (AUTO) 7.2 % (21-51); MEAN CORPUSCULAR HEMOGLOBIN 31.6 PG (27.0-31.0); MEAN CORPUSCULAR HGB CONC 33.8 g/dL (33.0-36.5); MEAN CORPUSCULAR VOLUME 93.6 FL (78-98); MONOCYTES # (AUTO) 1.2 X10'3 (0-0.9); MONOCYTES % (AUTO) 6.2 % (2-12); NEUTROPHILS # (AUTO) 16.5 X10'3 (1.8-7.7); NEUTROPHILS % (AUTO) 85.6 % (42-75); PLATELET COUNT 197 X10'3 (140-440); RED BLOOD COUNT 2.67 X10'6 (4.70-6.10); RED CELL DISTRIBUTION WIDTH 13.9 % (11.5-14.5); WHITE BLOOD COUNT 19.3 X10'3 (4.5-11.0)
[2019-06-01 02:12] LABS: ALBUMIN 2.1 G/DL (3.4-5.0); ANION GAP 8 (8-16); BLOOD UREA NITROGEN 28 MG/DL (7-18); BUN/CREATININE RATIO 27.2 (5.4-32.0); CALCIUM 7.4 MG/DL (8.5-10.1); CHLORIDE 104 MMOL/L (99-107); CREATININE 1.03 MG/DL (0.60-1.10); GLUCOSE 78 MG/DL (70-104); POTASSIUM 4.1 MMOL/L (3.5-5.1); SODIUM 137 MMOL/L (135-145); TOTAL CARBON DIOXIDE 25.1 MMOL/L (24-32); VANCOMYCIN,TROUGH 11.5 UG/ML (6.0-14.0); eGFR 72 ML/MIN
[2019-06-01] MEDS: VANCOmycin 1250MG/NS 250ml Bag 250 ML IV SCH (02:27)
--- NOTE | 2019-06-01 06:00 | NUR ---
Patient in room MED 307. I have received report from SEMAJ GARRETT and had the opportunity to ask questions and assume patient care.
--- NOTE | 2019-06-01 06:00 | NUR ---
Problems reprioritized. Patient report given, questions answered & plan of care reviewed with Steph GARRETT.
[2019-06-01 06:30] VITALS: BP 129/61
[2019-06-01] MEDS ORDERED: potassium Cl 20 mEq SR tablet PO PRN (07:15)
[2019-06-01] MEDS ORDERED: potassium Cl 20mEq/100mL bag 100 ML IV PRN (07:15)
--- NOTE | 2019-06-01 07:48 | NUR ---
Blood Sugar was 61, I gave a dose of glucose - shot 15G, will pass this information along to his primary nurse after her break to recheck his BS in 15 mins.
[2019-06-01] MEDS: cefepime 2g/NS 100ml ADVANTAGE 100 ML IV SCH (08:25)
[2019-06-01] MEDS: aspirin 81mg tablet.DR PO SCH (08:25)
[2019-06-01] MEDS: lactobacillus rhamnosus 10,000 MMU CELLS/CAPSULE PO SCH (08:25)
[2019-06-01] MEDS: metoprolol tartrate 25mg tablet PO SCH (08:25)
[2019-06-01] MEDS: docusate sod 100mg capsule PO SCH (08:26)
[2019-06-01] MEDS: pantoprazole 40mg Tablet.DR PO SCH (08:26)
[2019-06-01] MEDS: atorvastatin 10mg tablet PO SCH (08:27)
[2019-06-01] MEDS: FERROUS SULFATE 142 MG TABLET.ER (45mg elemental) PO SCH (08:36)
[2019-06-01 11:00] VITALS: BP 130/64
--- NOTE | 2019-06-01 14:30 | NUR ---
Per nursing judgement decreased lunch insulin dose per drop in blood sugar in recent past. Decreased dose due to blood sugar dropping too low even with previous shift giving less than protocol suggested.
[2019-06-01] MEDS: insulin Lispro (HumaLOG) vial - multi-dose SQ SCH (14:54)
--- NOTE | 2019-06-01 15:15 | NUR ---
Called report to Diamond LARKIN at [facility]. Patient discharged/transported at 1503 today.
[2019-06-03] MEDS ORDERED: VANCOMYCIN LEVEL IV ONE (00:30)
== END 2019-06-01 15:03 | DRG 235 ==
LOC: PAS IN 05:34 → EDSTATUS 07:30 → CICU 2S 13:03 → MED 3N 05-28 15:00
PROVIDERS: ADMIT Thoracic Surgery (Cardiothoracic Vascular Surgery); ATTEND Thoracic Surgery (Cardiothoracic Vascular Surgery)
PROC: 021009W Bypass Coronary Artery, One Artery from Aorta with Autologous Venous Tissue, Open Approach (ICD-10-PCS; 2019-05-25)
PROC: 06BQ4ZZ Excision of Left Saphenous Vein, Percutaneous Endoscopic Approach (ICD-10-PCS; 2019-05-25)
PROC: 06BP4ZZ Excision of Right Saphenous Vein, Percutaneous Endoscopic Approach (ICD-10-PCS; 2019-05-25)
PROC: 02HV33Z Insertion of Infusion Device into Superior Vena Cava, Percutaneous Approach (ICD-10-PCS; 2019-05-25)
PROC: 30233M1 Transfusion of Nonautologous Plasma Cryoprecipitate into Peripheral Vein, Percutaneous Approach (ICD-10-PCS; 2019-05-25)
PROC: 02HQ32Z Insertion of Monitoring Device into Right Pulmonary Artery, Percutaneous Approach (ICD-10-PCS; 2019-05-25)
PROC: 4A133B3 Monitoring of Arterial Pressure, Pulmonary, Percutaneous Approach (ICD-10-PCS; 2019-05-25)
PROC: 4A1239Z Monitoring of Cardiac Output, Percutaneous Approach (ICD-10-PCS; 2019-05-25)
PROC: 5A1221Z Performance of Cardiac Output, Continuous (ICD-10-PCS; 2019-05-25)
PROC: B24BZZ4 Ultrasonography of Heart with Aorta, Transesophageal (ICD-10-PCS; 2019-05-25)
PROC: 021 Heart and Great Vessels, Bypass (ICD-10-PCS; principal; 2019-05-25 06:51)
DX: I25.119 Atherosclerotic heart disease of native coronary artery with unspecified angina pectoris (principal); A41.9 Sepsis, unspecified organism; N17.0 Acute kidney failure with tubular necrosis; I82.612 Acute embolism and thrombosis of superficial veins of left upper extremity; D62 Acute posthemorrhagic anemia; E11.9 Type 2 diabetes mellitus without complications; M54.5 Low back pain; R94.39 Abnormal result of other cardiovascular function study; E78.5 Hyperlipidemia, unspecified; Z60.2 Problems related to living alone; I10 Essential (primary) hypertension; I48.0 Paroxysmal atrial fibrillation; N40.0 Benign prostatic hyperplasia without lower urinary tract symptoms; R50.82 Postprocedural fever; Z80.8 Family history of malignant neoplasm of other organs or systems; Z82.3 Family history of stroke; I95.9 Hypotension, unspecified
CPT/HCPCS: 0232T; 93312; 93325; 36415; 36600; 71045; 71046; 76937; 80048; 80053; 80202; 81001; 81003; 82330; 82435; 82803; 82947; 82948; 83036; 83605; 83735; 84100; 84132; 84145; 84295; 85018; 85025; 85347; 85384; 85610; 85730; 86885; 86900; 86901; 87040; 87081; 93005; 93880; 93970; 93971; 94002; 94760; 97110; 97116; 97161; 97530; A4618; A6258; A6402; A6446; A6449; A7000; A7048; C1713; C1751; C9113; G0378; GO378; J0131; J0690; J0692; J1265; J1644; J1815; J1940; J2001; J2060; J2150; J2250; J2270; J2370; J2440; J2597; J2704; J2720; J2795; J2930; J3370; J3475; J3480; J3490; J7030; J7040; J7050; J7060; J7120; P9012; P9045; P9047